=== PATIENT | male | born 1985 | race Caucasian/White ===

== ENCOUNTER 2025-03-16 21:16 | Observation (INO) ==
[2025-03-16] MEDS ORDERED: NALOXONE HCL 0.4 MG/1 ML VIAL/CARP ONE (21:22)
[2025-03-16] MEDS: SODIUM CHLORIDE 0.9% 1,000 ML IV SCH (21:24)
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
[2025-03-16 21:43] LABS: Hematocrit (blood only) 41.3 % (42.0-52.0); Hemoglobin 13.6 g/dl (14.0-18.0); Immature Granulocytes # (auto) 0.12 K/uL (0.01-0.20); Immature Granulocytes % (auto) 0.5 %; Mean Corpuscular Hemoglobin 30.6 pg (25.0-34.0); Mean Corpuscular Volume 93.0 fL (80.0-100.0); Platelet Count 314 K/uL (130-400); RDW Standard Deviation 43.7 fL (36.4-46.3); Red Blood Count 4.44 M/uL (4.70-6.10); White Blood Count 23.18 K/ul (4.8-10.8)
[2025-03-16 21:57] LABS: Appearance Urine Clear (Clear); Bacteria Urine Automated None Seen (None Seen); Cast Urine Automated 0-2 /lpf (0-2); Epithelial Cell Urine Auto 0-2 /hpf (0-2); Glucose Urine UA Negative (Negative); RBC Urine Automated 0-2 /hpf (0-2); WBC Urine Automated 0-5 /hpf (0-5)
[2025-03-16 22:00] LABS: Alanine Aminotransferase 20.0 U/L (7-52); Albumin Globulin Ratio 1.6 (0.9-2); Alkaline Phosphatase 60.0 U/L (34-104); Anion Gap 11.0 (3-11); Bilirubin,Total 0.2 mg/dl (0.2-1.0); Blood Urea Nitrogen 18.0 mg/dl (6-23); Calcium 9.0 mg/dl (8.6-10.3); Carbon Dioxide 25.0 mmol/L (21-32); Chloride 105.0 mmol/L (98-107); Creatinine Clr Calc Pharmacy 108.9 ml/min; Globulin 2.8 gm/dl (2.5-4.0); Glucose 121.0 mg/dl (70-99(Fasting)); Potassium 4.2 mmol/L (3.5-5.1); Sodium 141.0 mmol/L (136-145); Total Protein 7.2 gm/dl (6.0-8.3)
[2025-03-16] MEDS: LORazepam 1 MG/1 ML SYR ED Inj Use IV STA (22:08)
[2025-03-16 22:10] LABS: Acetaminophen < 3 ug/ml (10-30); Salicylate < 3.0 mg/dl (3.0-30)
[2025-03-16 22:34] LABS: Amphetamines+Metham, Urine Neg (Neg); MDMA (Ecstacy), Urine Neg (Neg); Marijuana, Urine Neg (Neg)
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
[2025-03-16] MEDS: ACETAMINOPHEN 1,000 MG/100 ML VIAL IV STA (23:35)
[2025-03-17] MEDS: NALOXONE HCL 0.4 MG/1 ML VIAL/CARP IV STA (00:08)
[2025-03-17 00:27] LABS: Magnesium 1.8 mg/dl (1.7-2.4)
--- NOTE | 2025-03-17 00:32 | XRay Report ---
Exam(s): XR CXR 1 VIEW EXAM: XR Chest, 1 View CLINICAL HISTORY: Reason for exam: AMS. TECHNIQUE: Frontal view of the chest. COMPARISON: No relevant prior studies available. FINDINGS: Lungs: There is moderate to heavy peribronchial thickening of the central and lower lobe bronchi with perihilar infiltrates. Pleural space: Unremarkable. No pneumothorax. Heart: Unremarkable. No cardiomegaly. Mediastinum: Unremarkable. Normal mediastinal contour. Bones/joints: Unremarkable. No acute fracture. IMPRESSION: Bronchitis with perihilar infiltrates. Communications: Verify Receipt Electronically signed by: Niecy Mosher MD 03/17/25 00:30 AM
[2025-03-17] MEDS ORDERED: AMPICILLIN/SULBACTAM SOD 3,000 MG/100 ML BAG IV SCH ×2 (00:45→01:00)
--- NOTE | 2025-03-17 00:53 | CT Scan Report ---
Exam(s): CT HEAD Without Contrast EXAM: CT Head Without Intravenous Contrast CLINICAL HISTORY: Reason for exam: AMS. TECHNIQUE: Axial computed tomography images of the head/brain without intravenous contrast. CTDI is 52.52 mGy and DLP is 874.17 mGy-cm. Automated exposure control was utilized for the study. A dose lowering technique was utilized adhering to the principles of ALARA. COMPARISON: No relevant prior studies available. FINDINGS: This study is limited secondary to motion artifact. Brain: Unremarkable. No hemorrhage. No significant white matter disease. No edema. Ventricles: Unremarkable. No ventriculomegaly. Bones/joints: Unremarkable. No acute fracture. Soft tissues: Unremarkable. Sinuses: Unremarkable as visualized. No acute sinusitis. Mastoid air cells: Unremarkable as visualized. No mastoid effusion. IMPRESSION: No evidence of acute intracranial pathology in this limited study. Electronically signed by: Niecy Mosher MD 03/17/25 00:52 AM
[2025-03-17] MEDS: LACTATED RINGER'S 1,000 ML IV ONE (01:35)
[2025-03-17] MEDS: AMPICILLIN/SULBACTAM SOD 3,000 MG/100 ML BAG IV STA (01:35)
[2025-03-17 03:00] LABS: Chlamydia pneumoniae PCR Not Detected (NotDetected); Coronavirus 229E PCR Not Detected (NotDetected); Coronavirus CoV-2 (COVID19)PCR Not Detected (NotDetected); Coronavirus HKU1 PCR Not Detected (NotDetected); Coronavirus NL63 PCR Not Detected (NotDetected); Coronavirus OC43PCR Not Detected (NotDetected); Human Metapneumovirus PCR Not Detected (NotDetected); Parainfluenza Virus 1 PCR Not Detected (NotDetected); Parainfluenza Virus 2 PCR Not Detected (NotDetected); Parainfluenza Virus 3 PCR Not Detected (NotDetected); Parainfluenza Virus 4 PCR Not Detected (NotDetected); Respiratory Syncytial VirusPCR Not Detected (NotDetected); Rhinovirus/Enterovirus PCR Not Detected (NotDetected)
[2025-03-17 05:12] LABS: Hematocrit (blood only) 37.6 % (42.0-52.0); Hemoglobin 12.8 g/dl (14.0-18.0); Immature Granulocytes # (auto) 0.07 K/uL (0.01-0.20); Immature Granulocytes % (auto) 0.4 %; Mean Corpuscular Hemoglobin 31.2 pg (25.0-34.0); Mean Corpuscular Volume 91.7 fL (80.0-100.0); Platelet Count 267 K/uL (130-400); RDW Standard Deviation 41.1 fL (36.4-46.3); Red Blood Count 4.10 M/uL (4.70-6.10); White Blood Count 16.01 K/ul (4.8-10.8)
[2025-03-17 05:31] LABS: Anion Gap 6.0 (3-11); Blood Urea Nitrogen 14.0 mg/dl (6-23); Calcium 9.0 mg/dl (8.6-10.3); Carbon Dioxide 27.0 mmol/L (21-32); Chloride 106.0 mmol/L (98-107); Creatinine Clr Calc Pharmacy 130.9 ml/min; Glucose 94.0 mg/dl (70-99(Fasting)); Potassium 4.5 mmol/L (3.5-5.1); Sodium 139.0 mmol/L (136-145)
[2025-03-17 05:45] LABS: Thyroid Stimulating Hormone 0.439 uIu/ml (0.300-4.500)
[2025-03-17] MEDS: LEVOTHYROXINE SODIUM 25 MCG TABLET PO SCH (06:44)
[2025-03-17 07:25] LABS: Hemoglobin A1C 5.8 % (4.5-5.6)
[2025-03-17 08:02] VITALS: TEMP 98.8
[2025-03-17] MEDS: PIPERACILLIN/TAZOBACTAM 4.5 GM/100 ML BAG IV STA (08:50)
[2025-03-17] MEDS: AMPICILLIN/SULBACTAM SOD 3,000 MG/100 ML BAG IV SCH (09:17)
[2025-03-17] MEDS: ENOXAPARIN INJ 40 MG/0.4 ML SYR SQ SCH (09:21)
[2025-03-17] MEDS: METHADONE ORAL SOLN 2 MG/ML PO SCH (10:30)
[2025-03-17] MEDS: NICOTINE 14 MG/24 HR PATCH TD SCH (11:48)
[2025-03-17] MEDS: DOXYCYCLINE HYCLATE 100 MG in DEXTROSE 5% MINI-B 100 ML IV SCH (12:05)
[2025-03-17 12:25] VITALS: RESP 18; O2SAT 98
[2025-03-17] MEDS: LEVALBUTEROL 1.25 MG/3 ML NEB NEB SCH (12:26)
[2025-03-17] MEDS: IPRATROPIUM BROMIDE NEB SOLN 0.02% 0.5MG/2.5ML VIAL NEB SCH (12:27)
--- NOTE | 2025-03-17 12:39 | Psychiatric Consultation ---
Date of Consultation March 17, 2025 Impression / Recommendations Impression 39 y/o male h/o anxiety disorder, opioid dependence on methadone, hypothyroidism, tobacco abuse who presents with polysubstance overdose (methadone, Klonopin, gabapentin) in the context of recent transition from suboxone to methadone and stress for recent job interview. Presents with likely unintentional overdose of prescribed opiate agonists, RAVEN analogues, and benzodiazepines. Patient denies recent/current SI, is future oriented, and presents a safe discharge plan. Collateral from his girlfriend was consistent with his story. Patient presented with respiratory depression and aspiration pneumonia and required resuscitation with narcan. He was counseled about risks of taking the contributory medications including the need for a pill box to avoid extra doses and that recent transition from suboxone to methadone may have contributed. He was advised to reduce benzodiazepine doses and engage in concomitant therapy to reduce anxiety and benzodiazepine needs. Overall, I spent a total of 80 minutes with this case including review of chart records, nursing report, review of lab work, direct evaluation of the patient at bedside, counseling the patient, discussion of the patient with the hospitalist provider, discussion with the psychiatric liaison during clinical rounds, and documentation in the electronic health record. (1) Drug overdose: (2) Sepsis: (3) Social anxiety disorder: (4) Opioid dependence on maintenance agonist therapy, no symptoms: Plan 03/17/25: No acute safety concerns identified. Does not meet criteria for 302 involuntary commitment. Patient counseled to reduce frequency and dosing of benzodiazepines, RAVEN analogues, opiates; recommended pillbox Psych History Identifying Data 39 y/o male h/o anxiety disorder, opioid dependence on methadone, hypothyroidism, tobacco abuse who presents with polysubstance overdose (methadone, Klonopin, gabapentin) in the context of recent transition from suboxone to methadone and stress for recent job interview. Chief Complaint Overdose, respiratory depression, aspiration PNA History of Present Illness The patient reports having a job interview yesterday at [employer]. Takes klononancy cassa for social anxiety. Past trials of SSRIs have been ineffective. Limited past therapy. Does not remember how he ended up in the hospital. Remembers having a job interview yesterday, then he went home with . Found out he got the job. Denies having suicidal ideation in the day or weeks prior and denies past suicide attempts. Denies current suicidal ideation. No recent interpersonal conflicts or stressors outside of job interview stress. Reports picking up new bottle of klonopin last few days. On Abilify for "Depression" and feels it is working well. PDMP shows pt is rx Clonazepam 1mg QID however takes it BID on most days; denies recent increase in use. Taking phentermine for weight loss. Was previously on Suboxone 8-2mg BID up until Mid january and transitioned to Methadone given better s/e profile. Denies other recent med changes. Presents a plan to return home and start his job. Collateral from patient's GF ([phone]): Pt was nervous prior to job interview. No missing bottles of methadone. May have taken an additional dose. Often takes a few pills and leaves them around the house and forgots where he puts them. 1.5 hours after interview pt thought his GF left him but she was waiting in the car like they discussed. When he was home, GF noticed something may have been wrong as his face was pale, has cotton mouth. He was dozing off in the car. Later she was away from the home however her father's caregiver noticed pt had blue lips and was not breathing normally. No vomitus identified externally. EMS was called. Denies him mentioning suicidal ideation or past suicide attempt. Allergies Allergy/AdvReac Type Severity Reaction Status Date / Time No Known Allergies Allergy Verified 03/17/25 00:07 Home Medications Medication Instructions Recorded Confirmed Type Lactobacillus acidoph-L.bulgaricus 1 tab PO DAILY 14 days #14 tabs 03/17/25 Rx 1 million cell tablet (Floranex) amoxicillin 875 mg-potassium 1 tab PO BID 7 days #14 tabs 03/17/25 Rx clavulanate 125 mg tablet clonazepam 1 mg tablet 1 mg PO BID PRN Anxiety #0 tabs 03/17/25 03/17/25 Rx doxycycline hyclate 100 mg capsule 100 mg PO BID 7 days #14 caps 03/17/25 Rx gabapentin 800 mg tablet 400 mg (1/2 x 800 mg) PO BID #0 03/17/25 03/17/25 Rx tabs levothyroxine 25 mcg tablet 12.5 mcg PO DAILYBB 03/17/25 03/17/25 History methadone 10 mg/mL oral concentrate 70 mg PO DAILY 03/17/25 03/17/25 History Patient History Social History Smoking Status: Former smoker Tobacco Type: Cigarettes Hx Alcohol Use: No Hx Substance Use: Yes Last Used Substance: Just Prior to Arrival Last Used Substance Other:: methadone Preferred Language: Libyan Communication Ability: Effective 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 Beliefs That Will Affect Care: None Current Living Situation: Significant Other Current Living Situation Comment: sonya hooper girlfriend Feels Safe at Home: Yes Assistive Devices: None Physical Exam Mental Examination: Appearance: Unkempt Eye Contact: Maintains Eye Contact (pin point) Motor Behavior: Unremarkable Speech: Normal Mood: Calm and Dyphoric Affect: Appropriate and Congruent Thought Process: Intact and Linear Thought Content: Intact Hallucinations: None Insight: Poor (to limited) Judgement: Poor (to limited) Vital Signs (Past 24 Hours): Last Vital Signs Temp 37.1 C 03/17/25 08:01 Pulse 68 03/17/25 12:25 Resp 18 03/17/25 12:25 BP 138/85 03/17/25 10:37 Pulse Ox 98 03/17/25 12:25 O2 Del Method Room Air 03/17/25 12:25 O2 Flow Rate 2 03/16/25 23:00 Results & Data (PSY) Medications Administered Enoxaparin Sodium (Enoxaparin Inj 40 Mg/0.4 Ml Syr) 40 mg SQ QAM SIMONE Stop: 04/16/25 08:59 Last Admin: 03/17/25 09:21 Dose: 40 mg Documented By: MARISELAM Lactated Ringer's (Lr) 1,000 mls @ 75 mls/hr IV .[id number] ONE Stop: 03/17/25 14:03 Last Admin: 03/17/25 01:35 Dose: 75 mls/hr Documented By: MELISSA Doxycycline Hyclate 100 mg/ (Dextrose) 100 mls @ 50 mls/hr IV Q12H [facility] Stop: 03/22/25 10:59 Last Admin: 03/17/25 12:05 Dose: 50 mls/hr Documented By: LEOBARDO Ipratropium [place] (Ipratropium [place] Neb Soln 0.02% 0.5mg/2.5ml Vial) 0.5 mg NEB Q6R SIMONE Stop: 04/16/25 12:59 Last Admin: 03/17/25 12:27 Dose: 0.5 mg Documented By: KHANH Levalbuterol HCl (Levalbuterol 1.25 Mg/3 Ml Neb) 1.25 mg NEB Q6R [facility] Stop: 04/16/25 10:44 Last Admin: 03/17/25 12:26 Dose: Not Given Documented By: Admin: 03/17/25 12:26 Dose: 1.25 mg Documented By: KHANH Levothyroxine Sodium (Levothyroxine Sodium 25 Mcg Tablet) 12.5 mcg PO DAILYBB [facility] Stop: 04/16/25 06:29 Last Admin: 03/17/25 06:44 Dose: 12.5 mcg Documented By: TENZIN Methadone HCl (Methadone Oral Soln 2 Mg/Ml) 70 mg PO DAILY [facility] Stop: 03/31/25 09:59 Last Admin: 03/17/25 10:30 Dose: 70 mg Documented By: TDRachael Nicotine (Nicotine 14 Mg/24 Hr Patch) 1 patch TD QAM [facility] Stop: 04/16/25 10:44 Last Admin: 03/17/25 11:48 Dose: Not Given Documented By: MMN [place] [address] IN/OBS CONSULT LVL 5,80M Patient Type New History Detailed Exam Detailed Medical Decision Making High Complexity Diagnoses Drug overdose T50.901A Sepsis A41.9 Social anxiety disorder F40.10 Opioid dependence on maintenance agonist therapy, no symptoms F11.20
--- NOTE | 2025-03-17 12:59 | Electrocardiogram Report ---
Test Reason : Blood Pressure : */* mmHG Vent. Rate : 92 BPM Atrial Rate : 92 BPM P-R Int : 150 ms QRS Dur : 90 ms QT Int : 344 ms P-R-T Axes : 37 51 21 degrees QTcB Int : 425 ms Normal sinus rhythm Normal ECG No previous ECGs available Confirmed by Solo Barksdale ([id number]) on 03/17/2025 12:58:32 PM Referred By: REFERRED SELF Confirmed By: Solo Barksdale
[2025-03-17] MEDS ORDERED: PIPERACILLIN/TAZOBACTAM 4.5 GM/100 ML BAG IV SCH (14:00)
[2025-03-17 14:21] VITALS: BP 132/71; PULSE 65
--- NOTE | 2025-03-17 18:50 | Discharge Summary ---
Discharge Summary Date of Service March 17, 2025 Principal Dx & Hospital Course #1 = Principal Diagnosis (1) Sepsis: (1) Sepsis: Plan: Assessment and plan below following discussion of case with ED provider and reviewing patient history/pertinent normal/abnormal diagnostic test results. Possible Sepsis likely from Acute bronchitis, possible early pneumonia clinically stable Afebrile, on room air Leukocytosis improving Blood cultures negative so far will discharge on p.o. Augmentin plus doxycycline, probiotics Polysubstance overdose (methadone, Klonopin, gabapentin), history anxiety disorder/history of opioid abuse Evaluated by psychiatry service [place] to be unintentional overdose of prescribed opiate agonists,, analogs, benzodiazepines Denies recent or current suicidal ideation, future oriented, presents with safe discharge plan Advised to decrease clonazepam to twice a day instead of 4 times a day as needed Also decrease gabapentin from 800-400 twice a day No acute safety concerns identified, does not meet criteria for 302 involuntary commitment as per psychiatry cleared for discharge home Patient requesting for discharge as he has an ongoing job application process hypothyroidism- TSH normal prediabetes- A1c 5.8, outpatient follow-up ongoing tobacco abuse- counseled regarding cessation plan of care discussed with patient in detail and at length all questions answered he is understanding, agreeable, comfortable with the plan of care Notes For Next Care Provider Medication Changes From Visit as per medical reconciliation Admission HPI Per Admitting Provider History obtained from patient partner, ED provider, and records. Unable to obtain history from patient secondary to obtunded state post Ativan administration at the ER. Medical history significant for hypothyroidism, anxiety/mood disorder, history of opioid abuse on methadone, ongoing tobacco abuse. Patient relocated 2 months ago to [facility] from [place], [place] to live with his girlfriend. Patient seems stressed out after job interview at [employer] this afternoon. Patient has social anxiety as per partner. Patient brought home by partner. Partner's family found him to have decreased responsiveness with pinpoint pupils. Empty bottles of Klonopin, gabapentin and methadone found at at home. Patient partner not sure of suicidal intent although patient's mother gives history of drug-related events years ago as per her account. EMS called to patient's home. Some improvement in mentation after Narcan administration Patient brought to ER for evaluation. IV Ativan administered for agitation. Medical History as above Surgical History : Could not be obtained due to obtunded state Family History : Could not be obtained due to obtunded state Personal/Social history : 1/4 pack daily, no EtOH intake, currently unemployed Admission Exam Per Admitting Provider GENERAL: Obese, obtunded, no respiratory distress SKIN: Normal color, warm HEENT: Alopecia, pink palpebral conjunctivae, no ptosis, dry buccal mucosa NECK : Supple, no tenderness CHEST : Decreased breath sounds, no tenderness HEART : RRR, no obvious murmurs ABDOMEN: Some distention, nontender EXTREMITIES : No LE swelling/tenderness, palpable pulses, no other conspicuous deformities noted NEUROLOGIC : Obtunded, no facial asymmetry, gait and stance not assessed Discharge Exam General- oriented x 3, not in distress, speaks in sentences with no effort or accessory muscle use Eyes- anicteric Neck- no JVD Lungs- clear breath sounds bilaterally, no rales/wheezes Heart- normal rate, regular rhythm; no murmurs Abdomen- normal bowel sounds, nondistended, soft, nontender Extremities- no pretibial edema, no calf tenderness Neuro- alert, oriented x 3; no gross focal neurologic deficits Skin- warm & dry Psych- calm, cooperative, normal affect, Denies suicidal ideations Updated Medication List Medication Instructions Recorded Confirmed Type Lactobacillus acidoph-L.bulgaricus 1 tab PO DAILY 14 days #14 tabs 03/17/25 Rx 1 million cell tablet (Floranex) amoxicillin 875 mg-potassium 1 tab PO BID 7 days #14 tabs 03/17/25 Rx clavulanate 125 mg tablet clonazepam 1 mg tablet 1 mg PO BID PRN Anxiety #0 tabs 03/17/25 03/17/25 Rx doxycycline hyclate 100 mg capsule 100 mg PO BID 7 days #14 caps 03/17/25 Rx gabapentin 800 mg tablet 400 mg (1/2 x 800 mg) PO BID #0 03/17/25 03/17/25 Rx tabs levothyroxine 25 mcg tablet 12.5 mcg PO DAILYBB 03/17/25 03/17/25 History methadone 10 mg/mL oral concentrate 70 mg PO DAILY 03/17/25 03/17/25 History Hospital Stay Data Consultations 03/16/25 23:09 ED Decision to Admit Stat 03/16/25 23:42 Consult Psychiatry Routine Diagnostic Imagining Performed Laboratory Results WBC 16.01 K/ul (4.8-10.8) H 03/17/25 04:53 RBC 4.10 M/uL (4.70-6.10) L 03/17/25 04:53 Hgb 12.8 g/dl (14.0-18.0) L 03/17/25 04:53 Hct 37.6 % (42.0-52.0) L 03/17/25 04:53 MCV 91.7 fL (80.0-100.0) 03/17/25 04:53 MCH 31.2 pg (25.0-34.0) 03/17/25 04:53 MCHC 34.0 g/dL (32.0-36.0) 03/17/25 04:53 RDW Std Deviation 41.1 fL (36.4-46.3) 03/17/25 04:53 RDW Coeff of Delmi 12.4 % (11.5-14.5) 03/17/25 04:53 Plt Count 267 K/uL (130-400) 03/17/25 04:53 MPV 9.4 fL (9.4-12.4) 03/17/25 04:53 Immature Gran % (Auto) 0.4 % 03/17/25 04:53 Neut % (Auto) 78.8 % 03/17/25 04:53 Lymph % (Auto) 14.2 % 03/17/25 04:53 [place] % (Auto) 6.4 % 03/17/25 04:53 Eos % (Auto) 0.1 % 03/17/25 04:53 Baso % (Auto) 0.1 % 03/17/25 04:53 Neut # (Auto) 12.61 K/uL (1.40-6.50) H 03/17/25 04:53 Lymph # (Auto) 2.28 K/uL (1.20-3.40) 03/17/25 04:53 [place] # (Auto) 1.02 K/uL (0.11-0.59) H 03/17/25 04:53 Eos # (Auto) 0.01 K/uL (0.00-0.50) 03/17/25 04:53 Baso # (Auto) 0.02 K/uL (0.00-0.20) 03/17/25 04:53 Immature Gran # (Auto) 0.07 K/uL (0.01-0.20) 03/17/25 04:53 Sodium 139 mmol/L (136-145) 03/17/25 04:53 Potassium 4.5 mmol/L (3.5-5.1) 03/17/25 04:53 Chloride 106 mmol/L (98-107) 03/17/25 04:53 Carbon Dioxide 27 mmol/L (21-32) 03/17/25 04:53 Anion Gap 6 (3-11) 03/17/25 04:53 BUN 14 mg/dl (6-23) 03/17/25 04:53 Creatinine 0.89 mg/dl (0.6-1.4) 03/17/25 04:53 Est Cr Clr Drug Dosing 130.9 ml/min 03/17/25 04:53 eGFR 110.41 03/17/25 04:53 BUN/Creatinine Ratio 15.7 (10-20) 03/17/25 04:53 Glucose 94 mg/dl (70-99(Fasting)) 03/17/25 04:53 Estimat Average Glucose 120 mg/dl 03/17/25 04:53 Hemoglobin A1c 5.8 % (4.5-5.6) H 03/17/25 04:53 Calcium 9.0 mg/dl (8.6-10.3) 03/17/25 04:53 Magnesium 1.8 mg/dl (1.7-2.4) 03/16/25 21:30 Total Bilirubin 0.2 mg/dl (0.2-1.0) 03/16/25 21:30 AST 22 U/L (13-39) 03/16/25 21:30 ALT 20 U/L (7-52) 03/16/25 21:30 Alkaline Phosphatase 60 U/L (34-104) 03/16/25 21:30 Total Protein 7.2 gm/dl (6.0-8.3) 03/16/25 21:30 Albumin 4.4 gm/dl (3.4-5.0) 03/16/25 21:30 Globulin 2.8 gm/dl (2.5-4.0) 03/16/25 21:30 Albumin/Globulin Ratio 1.6 (0.9-2) 03/16/25 21:30 Procalcitonin 0.06 ng/ml (0-0.5) 03/16/25 21:30 TSH 0.439 uIu/ml (0.300-4.500) 03/17/25 04:53 Urine Color Yellow 03/16/25 21:37 Urine Appearance Clear (Clear) 03/16/25 21:37 Urine pH 5.0 (4.5-7.5) 03/16/25 21:37 Ur Specific [place] 1.033 (1.000-1.030) H 03/16/25 21:37 Urine Protein Trace (Negative) H 03/16/25 21:37 Urine Glucose (UA) Negative (Negative) 03/16/25 21:37 Urine Ketones Negative (Negative) 03/16/25 21:37 Urine Blood Negative (Negative) 03/16/25 21:37 Urine Nitrite Negative (Negative) 03/16/25 21:37 Urine Bilirubin Negative (Negative) 03/16/25 21:37 Urine Urobilinogen Negative (Negative) 03/16/25 21:37 Ur Leukocyte Esterase Negative (Negative) 03/16/25 21:37 Urine WBC (Auto) 0-5 /hpf (0-5) 03/16/25 21:37 Urine RBC (Auto) 0-2 /hpf (0-2) 03/16/25 21:37 U Hyaline Cast (Auto) 0-2 /lpf (0-2) 03/16/25 21:37 U Epithel Cells (Auto) 0-2 /hpf (0-2) 03/16/25 21:37 Urine Bacteria (Auto) None Seen (None Seen) 03/16/25 21:37 Urine Comment 03/16/25 21:37 Nasal Screen MRSA (PCR) Negative (Negative) 03/17/25 08:30 Salicylates < 3.0 mg/dl (3.0-30) L 03/16/25 21:30 Urine Opiates Screen Neg (Neg) 03/16/25 21:37 Ur Methadone, Qual Pos (Neg) H 03/16/25 21:37 Urine Fentanyl Screen Neg (Neg) 03/16/25 21:37 Acetaminophen < 3 ug/ml (10-30) L 03/16/25 21:30 Urine Barbiturates Neg (Neg) 03/16/25 21:37 Ur Phencyclidine (PCP) Neg (Neg) 03/16/25 21:37 U Amphetamin/Meth Scrn Neg (Neg) 03/16/25 21:37 MDMA (Ecstasy) Screen Neg (Neg) 03/16/25 21:37 U Benzodiazepines Scrn Pos (Neg) H 03/16/25 21:37 Ur Cocaine Metabolite Neg (Neg) 03/16/25 21:37 U Marijuana (THC) Screen Neg (Neg) 03/16/25 21:37 Ethyl Alcohol mg/dL < 10.0 mg/dl (<10.0) 03/16/25 21:30 Adenovirus (PCR) Not Detected (NotDetected) 03/17/25 Unknown B. pertussis DNA (PCR) Not Detected (NotDetected) 03/17/25 Unknown B.parapertussis DNA PCR Not Detected (NotDetected) 03/17/25 Unknown C. pneumoniae DNA (PCR) Not Detected (NotDetected) 03/17/25 Unknown Coronavirus OC43 (PCR) Not Detected (NotDetected) 03/17/25 Unknown Coronavirus HKU1 (PCR) Not Detected (NotDetected) 03/17/25 Unknown Coronavirus 229E (PCR) Not Detected (NotDetected) 03/17/25 Unknown SARS-CoV-2 (PCR) Not Detected (NotDetected) 03/17/25 Unknown Coronavirus NL63 (PCR) Not Detected (NotDetected) 03/17/25 Unknown Human Metapneumovir PCR Not Detected (NotDetected) 03/17/25 Unknown Influenza Type A (PCR) Not Detected (NotDetected) 03/17/25 Unknown Influenza Type B (PCR) Not Detected (NotDetected) 03/17/25 Unknown M. pneumoniae (PCR) Not Detected (NotDetected) 03/17/25 Unknown Parainfluenza 1 (PCR) Not Detected (NotDetected) 03/17/25 Unknown Parainfluenza 2 (PCR) Not Detected (NotDetected) 03/17/25 Unknown Parainfluenza 3 (PCR) Not Detected (NotDetected) 03/17/25 Unknown Parainfluenza 4 (PCR) Not Detected (NotDetected) 03/17/25 Unknown RSV (PCR) Not Detected (NotDetected) 03/17/25 Unknown Entero/Rhino (PCR) Not Detected (NotDetected) 03/17/25 Unknown Impressions Chest X-Ray 03/16/25 21:22 CR Exam(s): XR CXR 1 VIEW EXAM: XR Chest, 1 View CLINICAL HISTORY: Reason for exam: AMS. TECHNIQUE: Frontal view of the chest. COMPARISON: No relevant prior studies available. FINDINGS: Lungs: There is moderate to heavy peribronchial thickening of the central and lower lobe bronchi with perihilar infiltrates. Pleural space: Unremarkable. No pneumothorax. Heart: Unremarkable. No cardiomegaly. Mediastinum: Unremarkable. Normal mediastinal contour. Bones/joints: Unremarkable. No acute fracture. IMPRESSION: Bronchitis with perihilar infiltrates. Communications: Verify Receipt Electronically signed by: Niecy Mosher MD 03/17/25 00:[address] 03/16/25 22:13 Exam(s): CT HEAD Without Contrast EXAM: CT Head Without Intravenous Contrast CLINICAL HISTORY: Reason for exam: AMS. TECHNIQUE: Axial computed tomography images of the head/brain without intravenous contrast. CTDI is 52.52 mGy and DLP is 874.17 mGy-cm. Automated exposure control was utilized for the study. A dose lowering technique was utilized adhering to the principles of ALARA. COMPARISON: No relevant prior studies available. FINDINGS: This study is limited secondary to motion artifact. Brain: Unremarkable. No hemorrhage. No significant white matter disease. No edema. Ventricles: Unremarkable. No ventriculomegaly. Bones/joints: Unremarkable. No acute fracture. Soft tissues: Unremarkable. Sinuses: Unremarkable as visualized. No acute sinusitis. Mastoid air cells: Unremarkable as visualized. No mastoid effusion. IMPRESSION: No evidence of acute intracranial pathology in this limited study. Electronically signed by: Niecy Mosher MD 03/17/25 00:52 AM Pending Results Patient Have Any Pending Studies at Discharge: No Discharge Instructions Given to Patient (Per Discharging Provider) PLEASE REFER TO YOUR NEW MEDICATION LIST AND FOLLOW INSTRUCTIONS CAREFULLY. YOUR NEW MEDICATIONS INCLUDE: AUGMENTIN, DOXYCYCLINE- antibiotics for bronchitis/pneumonia Take a probiotic daily x 2 weeks to prevent diarrhea associated with antibiotics. Drink plenty of fluids. DECREASE CLONAZEPAM TO TWICE A DAY. DECREASE GABAPENTIN TO 400MG TWICE A DAY. Always take your medications carefully making sure to adhere to following instructions. Always use incentive spirometer every 4 hours for 1 week. PLEASE CALL YOUR PRIMARY CARE PHYSICIAN OR RETURN TO THE ER IF WITH WORSENING OF SYMPTOMS, INCLUDING drowsiness, confusion, weakness, cough, shortness of breath, fever/chills, etc FOLLOW UP WITH PRIMARY CARE PHYSICIAN IN 1 WEEK. FOLLOW UP WITH [facility] IN 1 WEEK. Total Time Total Time Spent Total Time Spent (In Minutes): 80 minutes
[2025-03-17] MEDS ORDERED: SODIUM CHLOR 7% 4 ML NEB NEB SCH (19:00)
[2025-03-18] MEDS ORDERED: REMOVE NICODERM PATCH SCH (08:59)
--- NOTE | 2025-03-19 15:10 | Hospitalist Progress Note ---
Date of Service March 19, 2025 delayed entry date of service 2024 Assessment & Plan (1) Sepsis: Plan: Assessment and plan below following discussion of case with ED provider and reviewing patient history/pertinent normal/abnormal diagnostic test results. Possible Sepsis likely from Acute bronchitis, possible early pneumonia clinically stable Afebrile, on room air Leukocytosis improving Blood cultures negative so far will discharge on p.o. Augmentin plus doxycycline, probiotics Polysubstance overdose (methadone, Klonopin, gabapentin), history anxiety disorder/history of opioid abuse Evaluated by psychiatry service [place] to be unintentional overdose of prescribed opiate agonists,, analogs, benzodiazepines Denies recent or current suicidal ideation, future oriented, presents with safe discharge plan Advised to decrease clonazepam to twice a day instead of 4 times a day as needed Also decrease gabapentin from 800-400 twice a day No acute safety concerns identified, does not meet criteria for 302 involuntary commitment as per psychiatry cleared for discharge home Patient requesting for discharge as he has an ongoing job application process hypothyroidism- TSH normal prediabetes- A1c 5.8, outpatient follow-up ongoing tobacco abuse- counseled regarding cessation plan of care discussed with patient in detail and at length all questions answered he is understanding, agreeable, comfortable with the plan of care Admission and Anticipated Discharge Date Admission Date: March 17, 2025 Subjective seen sitting up in bed, comfortable, not in distress Awake and alert, answering all questions appropriately States he feels fine overall Denies headache, dizziness, focal neurologic symptoms Denies chest pain, palpitations, shortness of breath states his mood is okay, denies depression or suicidal ideations States he has no recollection of events overnight except for going to sleep states he woke up Here in the hospital and was confused as to what had happened I relayed to him that he was brought in by his significant other due to decreased responsiveness and concern for possible drug overdose Patient denies the possibility of drug overdose and states that he takes his medications only as directed he Reports that he is questioning whether his significant other may be Hiding/taking his medications no other symptoms Review of Systems Review of Systems: all noted and negative except for above Physical Exam Physical Exam: General- oriented x 3, not in distress, speaks in sentences with no effort or accessory muscle use Eyes- anicteric Neck- no JVD Lungs- clear breath sounds bilaterally, no rales/wheezes Heart- normal rate, regular rhythm; no murmurs Abdomen- normal bowel sounds, nondistended, soft, nontender Extremities- no pretibial edema, no calf tenderness Neuro- alert, oriented x 3; no gross focal neurologic deficits Skin- warm & dry Results & Data Results & Data Vital Signs (Past 12 Hours) all noted and reviewed including below
[2025-03-22 13:27] LABS: 7-Aminoclonaz, Confirm 7704 ng/mL (<25); Hydro-Alp Ur, GC/MS NEGATIVE ng/mL (<25); Hydroxyethylflurazepam, Conf NEGATIVE ng/mL (<50); Hydroxymidazolam Ur, GC/MS NEGATIVE ng/mL (<50); Lorazepam, Ur GC/MS NEGATIVE ng/mL (<50); Methadone, Ur Metabolite >10000 ng/mL (<100); Methadone, Ur Verification >10000 ng/mL (<100); Nordiazepam, Confirm NEGATIVE ng/mL (<50); Oxazepam Ur, GC/MS NEGATIVE ng/mL (<50); Temazepam, Confirm NEGATIVE ng/mL (<50)
== END 2025-03-17 14:20 | disposition home or self-care (01) | DRG 871 ==
LOC: ED 21:16 → INTOOBSV 03-17 00:42 → EDINP 03-17 00:42